=== PATIENT | male | born 1990 | race Caucasian/White ===

== ENCOUNTER 2023-01-17 13:48 | Emergency (ER) | payer OTHER ==
[~2023-01-17] VITALS: Ht 172.7 cm; Wt 188.2 kg
[2023-01-17 13:55] VITALS: BP 106/63; PULSE 73; RESP 20; TEMP 97.8; O2SAT 95
== END 2023-01-17 15:03 | disposition home or self-care (01) ==
LOC: MED 13:48
DX: M25.572 Pain in left ankle and joints of left foot (principal); Z79.899 Other long term (current) drug therapy
CPT/HCPCS: 73610; 99283